=== PATIENT | male | born 1975 | race Caucasian/White ===

== ENCOUNTER → 2022-01-08 07:45 | Outpatient (BNVA) | payer OTHER, SELFPAY | PROVIDERS: PCP Internal Medicine; Visit Provider Nurse Practitioner Family | DX: M25.561 Pain in right knee (principal); M25.562 Pain in left knee; M25.50 Pain in unspecified joint | CPT/HCPCS: 99202 ==

== ENCOUNTER 2022-01-08 09:31 | Outpatient (REF) | payer OTHER, SELFPAY ==
[2022-01-08 11:35] LABS: Erythrocyte Sedimentation Rate 2 MM/HR (0-15)
[2022-01-08 12:05] LABS: C Reactive Protein < 0.10 mg/dL (< or = 0.50); Rheumatoid Factor < 13.0 IU/mL (<15.0)
[2022-01-09 13:31] LABS: Cyclic Citrullinated Peptide <16 UNITS
[2022-01-09 17:27] LABS: Lyme Abs Screen <0.90 index
== END 2022-01-08 09:32 | disposition home or self-care (01) ==
LOC: HO.10HDL 09:31
PROVIDERS: Visit Provider Nurse Practitioner Family
DX: M25.50 Pain in unspecified joint (principal)
CPT/HCPCS: 36415; 85652; 86140; 86200; 86431; 86617; 86618